=== PATIENT | female | born 1965 | race Caucasian/White ===

== ENCOUNTER 2025-01-02 01:59 | Emergency (ER) | payer OTHER, SELFPAY ==
[2025-01-02 02:26] LABS: Urine Character Slightly Cloudy (Clear)
[2025-01-02 03:13] LABS: Urine Squamous Cell >30 /LPF (Few); Urine Urothelial Cell >30 /LPF (FEW)
[2025-01-02 03:14] LABS: Urine White Cell >100 /HPF (0-5)
[2025-01-02 05:19] LABS: Hematocrit 41.2 % (37.0-47.0); Hemoglobin 14.0 g/dL (12.0-16.0); Mean Corp Hgb Conc. 34.0 g/dL (33.0-37.0); Mean Corpuscular Volume 92.4 fL (81.0-99.0); Nucleated Red Blood Cells % 0 %; Platelet Count 191 10^3/uL (130-400); Red Cell Dist. Width 12.8 % (11.5-14.5)
[2025-01-02 05:39] VITALS: BMI 31.4
[2025-01-02 05:50] LABS: Blood Urea Nitrogen 17 mg/dl (7-17); Calcium 9.5 mg/dl (8.4-10.2); Carbon Dioxide 21 mmol/L (22-30); Chloride 109 mmol/L (98-107); Estimated Creatinine Clearance 89 ml/min; Glucose 104 mg/dl (70-99); Potassium 4.5 mmol/L (3.5-5.1); Sodium 135 mmol/L (135-145); eGFR > 60.00
--- NOTE | 2025-01-02 05:52 | ED.GENMED ---
History of Present Illness
<Jose L Vargas Jr., PA-C - Last Filed: 01/03/25 01:31>
General
Chief Complaint: Urinary Symptoms
Source: patient and spouse
Exam Limitations: none
Time Seen by Provider: 01/02/25 04:16
Nursing documentation reviewed up to this point in time: agreed with
History of Present Illness
History of Present Illness:
59-year-old female presenting to the emergency department today for concerns of several days of urinary symptoms. Discussed with her primary care doctor started on Bactrim a day and a half ago took 3 total doses of Bactrim now having worsening
discomfort now radiating to the right low back. Denies any specific fevers nausea vomiting.
Past History
<Jose L Vargas Jr., PA-C - Last Filed: 01/03/25 01:31>
Past History
ED Past Medical History: None
ED Past Surgical History: None
Social History
Tobacco: Non-smoker
Review of Systems
<SANDHYA Cordova Jr. Last Filed: 01/03/25 01:31>
Review of Systems
Allergies reviewed?: Yes
All Other Systems: ROS reviewed and negative except as documented in HPI and ROS
Phy Exam
<SANDHYA Cordova Jr. Last Filed: 01/03/25 01:31>
Physical Exam
Physical Exam:
GENERAL: Alert , in no apparent distress
EYE: pupils equal and reactive
NECK: Supple, no significant adenopathy.
ENT: o/p clr, mmm.
CARDIAC: Regular rate and rhythm .
LUNGS: Clear breath sounds bilaterally, no acute respiratory distress, no wheezes/rales/rhonchi
ABDOMEN: Soft, without focal tenderness, no r/g, no cvat
NEUROLOGICAL: Alert and oriented, no focal neuro deficits
SKIN: Warm and dry, skin intact.
MUSCULOSKELETAL: No edema, well perfused.
PSYCH: Normal and appropriate interaction.
Course
<Jose L Vargas Jr., PA-C - Last Filed: 01/03/25 01:31>
Orders/Labs/Results
Orders:
Orders
01/02/25 02:09
Urinalysis Reflex To Culture Urgent
Date Specimen was Collected: 01/02/25
Time Specimen was Collected: 02:08
Urine Microscopic Reflex Cult Urgent
Urine Culture Urgent
ANKIT Source: U
Specimen Description:
Date Specimen was Collected: 01/02/25
Time Specimen was Collected: 02:08
01/02/25 04:23
CT Abd/pel Without Iv Or Oral Urgent
Comment:
Reason For Exam: Right flank pain, uti/rbc urine, stone eval
CefTRIAXone [Rocephin] 2,000 mg IV NOW STA
Ketorolac [Toradol] 15 mg IV NOW STA
01/02/25 04:24
0.9% Sodium Chloride 1000 ml [Nss] 1,000 ml IV BOLUS
01/02/25 05:02
BMP [Basic Metabolic Panel] Urgent
CBC/With Diff [Complete Blood Count/With Diff] Urgent
Abnormal Lab Results
01/02/25 01/02/25
02:09 05:02
WBC 12.9 H 10^3/uL
(4.8-10.8)
MCH 31.4 H pg
(27.0-31.0)
Absolute Neuts (auto) 9.2 H 10^3/uL
(1.4-6.5)
Absolute Monos (auto) 0.8 H 10^3/uL
(0.1-0.6)
Chloride 109 H mmol/L
(98-107)
Carbon Dioxide 21 L mmol/L
(22-30)
Glucose 104 H mg/dl
(70-99)
Ur Occult Blood Reflex 4+ A
(Negative)
Leukocyte Esterase Rfl 3+ A
(Negative)
Urine WBC (Reflex) >100 A /HPF
(0-5)
Urine Bacteria (Reflex) Many A
(Negative)
Urine Glucose 3+ A
(Negative)
Urine Albumin (Reflex) 2+ A
(Neg - Trace)
01/02/25 05:02
01/02/25 05:02
Vital Signs
Initial and Last Documented VS:
Initial Vital Signs
Pulse Ox
98
01/02/25 05:43
Last Documented Vital Signs
Temp Pulse Resp BP Pulse Ox
97.6 F 92 18 102/66 97
01/02/25 07:40 01/02/25 07:05 01/02/25 07:05 01/02/25 07:05 01/02/25 07:05
<NAKUL Guthrie - Last Filed: 01/02/25 07:42>
Orders/Labs/Results
Orders:
Orders
01/02/25 02:09
Urinalysis Reflex To Culture Urgent
Date Specimen was Collected: 01/02/25
Time Specimen was Collected: 02:08
Urine Microscopic Reflex Cult Urgent
Urine Culture Urgent
ANKIT Source: U
Specimen Description:
Date Specimen was Collected: 01/02/25
Time Specimen was Collected: 02:08
01/02/25 04:23
CT Abd/pel Without Iv Or Oral Urgent
Comment:
Reason For Exam: Right flank pain, uti/rbc urine, stone eval
CefTRIAXone [Rocephin] 2,000 mg IV NOW STA
Ketorolac [Toradol] 15 mg IV NOW STA
01/02/25 04:24
0.9% Sodium Chloride 1000 ml [Nss] 1,000 ml IV BOLUS
01/02/25 05:02
BMP [Basic Metabolic Panel] Urgent
CBC/With Diff [Complete Blood Count/With Diff] Urgent
Abnormal Lab Results
01/02/25 01/02/25
02:09 05:02
WBC 12.9 H 10^3/uL
(4.8-10.8)
MCH 31.4 H pg
(27.0-31.0)
Absolute Neuts (auto) 9.2 H 10^3/uL
(1.4-6.5)
Absolute Monos (auto) 0.8 H 10^3/uL
(0.1-0.6)
Chloride 109 H mmol/L
(98-107)
Carbon Dioxide 21 L mmol/L
(22-30)
Glucose 104 H mg/dl
(70-99)
Ur Occult Blood Reflex 4+ A
(Negative)
Leukocyte Esterase Rfl 3+ A
(Negative)
Urine WBC (Reflex) >100 A /HPF
(0-5)
Urine Bacteria (Reflex) Many A
(Negative)
Urine Glucose 3+ A
(Negative)
Urine Albumin (Reflex) 2+ A
(Neg - Trace)
01/02/25 05:02
01/02/25 05:02
Vital Signs
Initial and Last Documented VS:
Initial Vital Signs
Pulse Ox
98
01/02/25 05:43
Last Documented Vital Signs
Temp Pulse Resp BP Pulse Ox
97.6 F 92 18 102/66 97
01/02/25 07:40 01/02/25 07:05 01/02/25 07:05 01/02/25 07:05 01/02/25 07:05
<Jose L Vargas Jr., PA-C - Last Filed: 01/03/25 01:31>
MDM/Problems Addressed
MDM/Problems Addressed:
59-year-old female presenting with concerns of initial urinary symptoms starting a few days ago now progressing to right flank pain. Total 3 doses of Bactrim have been taken as well. Denies any fevers nausea vomiting chest pain shortness of
breath. Slight white count on labs of 12.9. Urinalysis with significant white blood cells many bacteria certainly consistent with urinary tract infection. Many red blood cells.
<Jose L Vargas Jr., PA-C - Last Filed: 01/03/25 01:31>
*Pulse Oximetry
SaO2: 98
Oxygen Mode of Delivery: Room air
<NAKUL Guthrie - Last Filed: 01/02/25 07:42>
*Radiology
Radiology exam reviewed: radiology read reviewed
*Pulse Oximetry
Patient hypoxic: no
*Critical Care Note
Total Time (30-74mins, 75-104mins- exclusive of procedures): Not Applicable
<NAKUL Guthrie - Last Filed: 01/02/25 07:42>
Update Note
Update Note:
Received signout on patient. CAT scan was pending however CAT scan now does show mild perinephric stranding right greater than left and mild right periureteral stranding cannot exclude ascending UTI on the right. As reviewed with previous provider
would recommend discharge on cefpodoxime. Patient did receive IV Rocephin here.
I did evaluate patient she is feeling better she is well-appearing in no acute distress
ED Attending Note
<Jose L Vargas Jr., PA-C - Last Filed: 01/03/25 01:31>
-
Portions of this chart may have been created with voice recognition software.� Occasional wrong word or��sound alike� substitutions may have occurred due to the inherent limitations of voice recognition software.
Discharge Plan
Departure
Patient Disposition: Home (Routine Discharge)
Date of Disposition: 01/02/25
Time of Disposition: 07:41
Patient with high blood pressure during this ER visit?: No
Condition: Fair
Covid-19: Not Applicable
Discharge Problem:
Pyelonephritis
Instructions: Urinary tract infection in adults - ED discharge instructions
Prescriptions:
New
cefpodoxime 200 mg tablet
200 mg PO BID Qty: 20 0RF
No Action
sulfamethoxazole-trimethoprim [Bactrim DS] 800-160 mg Tablet
1 tab PO BID
rosuvastatin 10 mg Tablet
10 mg PO DAILY
dapagliflozin propanediol [Farxiga] 10 mg Tablet
10 mg PO DAILY
Entresto 24-26 mg Tablet
1 tab PO BID
Wegovy 2.4 mg/0.75 mL Pen Injector
2.4 mg SC WEEKLY
Rx Instructions:
on fridays
Referrals:
Prachi Elmore MD [Family Provider, Family Practice]
Activity Restrictions/Additional Instructions:
As discussed symptoms are consistent with kidney infection. You may stop Bactrim and start cefpodoxime 200 mg orally twice daily for the next 10 days. This antibiotic was sent to pharmacy.
Stay well-hydrated. Please follow-up with your family doctor in the next 2 days for reevaluation. Return if any worsening of symptoms of increased back pain, nausea vomiting fever chills or any further concerns.
Interventions
Interventions:
*Risk Screen - Suicide Last Done: 01/02/25 02:00
*General Assessment Last Done: 01/02/25 05:41
*Neglect/Abuse Screening Last Done: 01/02/25 02:00
*ED- Fall Risk Assessment Last Done: 01/02/25 05:41
*ED COVID-19 Vaccine History Last Done: 01/02/25 05:41
*Nursing Disposition Last Done: 01/02/25 07:58
ED-Female Genitourinary Assessment Last Done: 01/02/25 05:43
Discharge Date and Time
Discharge Date/Time: 01/02/25 07:59
Print Language: [id number]
[2025-01-02] MEDS: TORADOL 15 MG IV (05:56)
[2025-01-02] MEDS: NSS 1000 IV (05:56)
[2025-01-02] MEDS: ROCEPHIN 2000 MG IV (05:57)
[2025-01-02 07:05] VITALS: BP 102/66
== END 2025-01-02 07:59 | disposition home or self-care (01) ==
LOC: EMR 01:59
PROVIDERS: Physician Assistant; EMERGENCY PHYSICIAN Emergency Medicine; FAMILY PHYSICIAN Family Medicine
DX: N12 Tubulo-interstitial nephritis, not specified as acute or chronic (principal)
CPT/HCPCS: 96374; 96375; 99284; 74176; 80048; 81003; 81015; 85025; 87077; 87086